=== PATIENT | female | born 1965 | race Caucasian/White ===

== ENCOUNTER 2020-08-27 10:45 | Emergency (ER) | payer OTHER, MEDICAID, SELFPAY ==
[2020-08-27] VITALS (7 sets, daily range): BP systolic 103–148; BP diastolic 61–86; PULSE 76–88; RESP 14–16; TEMP 36.9; O2SAT 97–99; BMI 25.0
--- NOTE | 2020-08-27 11:01 | ED_ITS ---
HPI - Fall General Chief Complaint: Fall Stated Complaint: fell out of shower and hit wall Time Seen by Provider: 08/27/20 10:50 Source: patient Mode of arrival: Ambulatory Limitations: no limitations History of Present Illness HPI Narrative: Patient is a 55-year-old female not on anticoagulation here for evaluation of injuries that she sustained when she slipped and fell out of her shower yesterday. She states she did not hit her head but does have neck pain. Also has shoulder pain. Also has right-sided flank pain and right hip pain. She has been ambulatory since the event. There was no loss of consciousness. She is able to move her right shoulder. Has not tried anything for symptoms prior to arrival. Related Data Previous Rx's Medication Instructions Recorded cyclobenzaprine 10 mg PO TID PRN #12 tab 08/27/20 Allergies Allergy/AdvReac Type Severity Reaction Status Date / Time acetaminophen [From Tylenol] Allergy Verified 08/27/20 10:54 Review of Systems Constitutional Constitutional: Denies fatigue, Denies fever(s) and Reports headache(s) Eyes Eyes: Denies change in vision ENT Ears, Nose, Mouth, and Throat: Reports headache(s) and Reports neck pain Cardiovascular Cardiovascular: Denies chest pain and Denies dyspnea Respiratory Respiratory: Denies dyspnea Gastrointestinal Gastrointestinal: Denies abdominal pain, Denies nausea and Denies vomiting Genitourinary Genitourinary: Denies dysuria Genitourinary: Denies dysuria Musculoskeletal Musculoskeletal: Reports back pain and Reports neck pain Integumentary/Breasts Skin/Breast: Denies lesions and Denies rash Neurologic Neurologic: Denies behavioral changes and Reports headache(s) Psychiatric Psychiatric: Denies behavioral changes Endocrine Endocrine: Denies fatigue Hematologic/Lymphatic Hematologic/Lymphatic: Denies easy bleeding and Denies easy bruising Allergic/Immunologic Allergic/Immunologic: Denies urticaria Patient History Medical History Patient denies medical problems (Acute) Social History Smoking Status: Current every day smoker Smoking Status: Current every day smoker alcohol intake frequency: holidays/special occasions only Substance Use Type: does not use Exam Initial Vital Signs Initial Vital Signs: Vital Signs Temperature 98.4 F 08/27/20 10:48 Pulse Rate 88 08/27/20 10:48 Respiratory Rate 14 08/27/20 10:48 Blood Pressure 148/86 H 08/27/20 10:48 Pulse Oximetry 98 08/27/20 10:48 Const General: cooperative, comfortable and well developed Limitations: mental status not altered HENNC Head: normal to inspection and normocephalic Nose: external nose normal Face and sinus: normal facial exam Mouth: oral mucosae normal Chest Chest: No crepitus and No tenderness Resp Effort & Inspection: normal respiratory effort Auscultation: clear to auscultation bilaterally Cardio Rate: regular rate Rhythm: regular rhythm GI Inspection: non-distended Back/Spine/Pelvis Cervical Spine: collar present and cervical spinal tenderness Skin Other: Bruising to the right flank and posterior shoulder. Neuro General: patient alert and patient awake Cognition: normal cognition Speech: speech normal Gait: normal gait Extrem General: capillary refill normal Other: Patient has full range of motion right shoulder right elbow and right wrist. Also ambulated. Has tenderness over the greater trochanter of the right hip however can flex and extend without discomfort. Psych Appearance: grossly normal and well kempt Scores GCS Julien coma scale eye opening: Spontaneous [place] coma scale verbal response: Orientated [place] coma scale motor response: Obey commands [place] coma scale total score: 15 Nexus Score for C-Spine Focal Neurologic deficit present: No Midline spinal tenderness present: Yes Altered level of conciousness present: No Intoxication present: No Distracting Injury Present: No Nexus Criteria for C-spine: 1 Course Orders Ordered: ED Orders 08/27/20 11:01 CT cervical spine wo con Stat Vital Signs Vital signs: Vital Signs - 8 hr 08/27/20 10:48 08/27/20 10:51 08/27/20 11:00 Temperature 98.4 F Pulse Rate 88 87 87 Respiratory Rate 14 Blood Pressure 148/86 H Pulse Oximetry 98 99 97 08/27/20 11:30 08/27/20 12:00 08/27/20 12:21 Temperature Pulse Rate 83 76 76 Respiratory Rate Blood Pressure 112/61 103/67 108/69 Pulse Oximetry 97 97 99 MDM - Fall Imaging Data CT - cervical spine: Radiologist's Impression: [address] [address] [address] Scan Report Signed Patient: Mylene Aguilra LMR#: [id number] : 1965Acct:[id number] Age/Sex: 55 / FDate of Service: 08/27/20 Loc: ED Accession Number: [id number] Procedure: CT cervical spine wo con Ordering Provider: Vinod Adams D.O. PROCEDURE: CT CERVICAL SPINE WO CON INDICATIONS: Midline neck pain after fall TECHNIQUE: Noncontrast 3 mm thick sections acquired from the skull base to the T4 level. Sagittal and coronal reformats were then constructed. For radiation dose reduction, the following was used: automated exposure control, adjustment of mA and/or kV according to patient size. COMPARISON: None. FINDINGS: Image quality: Excellent. Bones: No fractures or dislocations. Minimal anterolisthesis at C4-5 and C5-6 levels are seen. Degenerative endplate changes are noted at C5-6 and C6-7 levels causing [id number] central canal stenosis, no significant neural foraminal narrowing. Visualized superior ribs are intact. Soft tissues: Prevertebral soft tissues are normal in thickness. No paravertebral hematomas. No apical pneumothoraces. IMPRESSION: 1. No acute cervical spine fracture or dislocation. 2. Degenerative disc disease in mid to lower cervical spine with minimal anterolisthesis at C4-5 and C5-6 levels. Dictated by: Darius Thompson M.D. on 08/27/2020 at 11:25 Approved by: Darius Thompson M.D. on 08/27/2020 at 11:28 [facility] Narrative Medical decision making narrative: Patient is ambulatory. Cervical spine CT is negative for any acute fractures. She has full range of motion of her right upper extremity to include the right shoulder. Given the range of motion of her upper and lower extremities will hold on any further x-rays for now. Patient is allergic to Tylenol given prior liver issue so she will continue with ibuprofen. Also sent home with muscle relaxers. Discussed other conservative treatment to include heat and ice and massage. Patient was given strict return precautions. She expressed understanding and agreement. Discharge Plan Departure Patient Disposition: Home Clinical Impression: Acute pain of right shoulder, Acute pain of right hip Cervical muscle strain Qualifiers: Encounter type: initial encounter Qualified Code(s): S16.1XXA - Strain of muscle, fascia and tendon at neck level, initial encounter Lower back pain Qualifiers: Chronicity: acute Back pain laterality: unspecified Sciatica presence: without sciatica Qualified Code(s): M54.5 - Low back pain Instructions: How To Perform RICE (Rest, Ice, Compress, Elevate) Activity Restrictions/Additional Instructions: The CT scan of your neck showed no fractures. I expected to be sore for the next couple days. Given your allergy to Tylenol I do recommend that you continue ibuprofen with food. You can also use heat and ice and massage. Recommend you stay as active as possible. Use the muscle relaxers as needed and as directed. Contact your primary provider for follow-up. Return to the emergency department for any new or worsening symptoms Prescriptions: New cyclobenzaprine 10 mg tablet 10 mg PO TID PRN (Reason: muscle spasm) Qty: 12 RF: 0
== END 2020-08-27 12:53 | disposition home or self-care (01) ==
PROVIDERS: Emergency Provider Emergency Medicine
DX: M25.511 Pain in right shoulder (principal); M25.551 Pain in right hip; S16.1XXA Strain of muscle, fascia and tendon at neck level, initial encounter; M54.5 Low back pain; R10.9 Unspecified abdominal pain; R51.9 Headache, unspecified; W18.2XXA Fall in (into) shower or empty bathtub, initial encounter
CPT/HCPCS: 72125; 99284

== ENCOUNTER → 2021-01-13 11:28 | Outpatient (CLI) | payer OTHER, MEDICAID, SELFPAY ==
--- NOTE | 2021-01-13 11:29 | DI.CT.S_ITS ---
PROCEDURE: CT CERVICAL SPINE WO CON INDICATIONS: re-eval prior c-spine fracture TECHNIQUE: Noncontrast 3 mm thick sections acquired from the skull base to the T4 level. Sagittal and coronal reformats were then constructed. For radiation dose reduction, the following was used: automated exposure control, adjustment of mA and/or kV according to patient size. COMPARISON: [facility], CT, CT CERVICAL SPINE WO CON, 08/27/2020, 12:10. FINDINGS: Image quality: Excellent. Bones: No fractures or dislocations. Visualized superior ribs are intact. There is an overall appearance of straightening of normal cervical curvature. There is grade 1 anterolisthesis of C4 on C5, 2 mm, similar at C5 on C6 as well as grade 1 retrolisthesis of C6 on C7, 2 mm. Minimal disc bulges are present at C4-5, mild C5-6 including a possible foraminal component on the left, mild bulge at C6-7. Moderate left foraminal narrowing at C3-4, C4-5, severe left C5-6, mild to moderate left C6-7. Multilevel uncovertebral hypertrophy is present. Soft tissues: Prevertebral soft tissues are normal in thickness. No paravertebral hematomas. No apical pneumothoraces. IMPRESSION: 1. Multilevel degenerative changes, unchanged compared to prior exam. Dictated by: Rita Lawson M.D. on 01/13/2021 at 15:20 Transcribed by: KACIE on 01/13/2021 at 15:52 Approved by: Rita Lawson M.D. on 01/15/2021 at 14:58
== END ==
PROVIDERS: PCP Student in an Organized Health Care Education/Training Program; Referring Provider Student in an Organized Health Care Education/Training Program; Visit Provider Student in an Organized Health Care Education/Training Program
DX: S12.9XXA Fracture of neck, unspecified, initial encounter (principal); M47.812 Spondylosis without myelopathy or radiculopathy, cervical region
CPT/HCPCS: 72125; Q9967

== ENCOUNTER → 2021-01-13 16:36 | Outpatient (CLI) | payer OTHER, MEDICAID, SELFPAY ==
--- NOTE | 2021-01-13 16:37 | DI.MG.S_ITS ---
BILATERAL DIGITAL SCREENING MAMMOGRAM 3D/2D WITH CAD: 01/13/2021 CLINICAL: Routine screening. Comparison is made to exams dated: 10/23/2019 mammogram and 10/20/2018 mammogram - outside location. There are scattered fibroglandular elements in both breasts. Current study was also evaluated with a Computer Aided Detection (CAD) system. No significant masses, calcifications, or other findings are seen in either breast. There has been no significant interval change. IMPRESSION: NEGATIVE There is no mammographic evidence of malignancy. A 1 year screening mammogram is recommended. This exam was interpreted at Station ID: [id number]. NOTE: For mammograms, a report in lay terms will be sent to the patient. Approximately 15% of breast malignancies will not be visualized mammographically. In the management of a palpable breast mass, a negative mammogram must not discourage biopsy of a clinically suspicious lesion. Electronically Signed By: Arnav carl/deya:01/14/2021 07:45:39 letter sent: Normal Exam ACR BI-RADS Category 1: Negative [id number]
== END ==
PROVIDERS: PCP Student in an Organized Health Care Education/Training Program; Referring Provider Student in an Organized Health Care Education/Training Program; Visit Provider Student in an Organized Health Care Education/Training Program
DX: Z12.31 Encounter for screening mammogram for malignant neoplasm of breast (principal)
CPT/HCPCS: 77063; 77067

== ENCOUNTER → 2021-01-30 10:25 | Outpatient (CLI) | payer OTHER, MEDICAID, SELFPAY ==
[2021-01-30] MEDS: COVID-19 VACC #1, MRNA(MOD) 100 MCG/0.5 ML VIAL IM (10:34)
== END ==
PROVIDERS: PCP Student in an Organized Health Care Education/Training Program; Visit Provider Internal Medicine
DX: Z23 Encounter for immunization (principal)
CPT/HCPCS: 0011A; 91301

== ENCOUNTER → 2021-02-27 10:19 | Outpatient (CLI) | payer OTHER, MEDICAID, SELFPAY ==
[2021-02-27] MEDS: COVID-19 VACC #2, MRNA(MOD) 100 MCG/0.5 ML VIAL IM (10:31)
== END ==
PROVIDERS: PCP Student in an Organized Health Care Education/Training Program; Visit Provider Internal Medicine
DX: Z23 Encounter for immunization (principal)
CPT/HCPCS: 0012A; 91301